=== PATIENT | female | born 1990 | race Caucasian/White ===

== ENCOUNTER 2018-06-12 16:22 | Emergency (ER) | payer MEDICAID ==
[2018-06-12] MEDS ORDERED: IBUPROFEN PO ONE (16:39)
--- NOTE | 2018-06-12 16:39 | Emergency Department Report ---
Chief Complaint: Upper Respiratory Infection Stated Complaint: FLU LIKE SYM Time Seen by Provider: 06/12/18 16:38 - HPI History of Present Illness: COLD COUGH CONGESTION FEVER MSE COMPLETED NO LIFE THREAT - Exam Vital Signs: Vital Signs 06/12/18 16:35 Temperature 99.1 F Pulse Rate 132 H Respiratory 16 Rate Blood Pressure 138/65 [Left] O2 Sat by Pulse 96 Oximetry MSE screening note: Focused history and physical exam performed. Due to findings the following was ordered: ED Disposition for MSE Condition: Stable
[2018-06-12] MEDS ORDERED: ZOFRAN ODT PO ONE (19:26)
--- NOTE | 2018-06-12 19:26 | Emergency Department Report ---
HPI - General Chief Complaint: Upper Respiratory Infection Time Seen by Provider: 06/12/18 16:38 - HPI HPI: This is a 27-year-old female here reports that her has the flu and he was given Tamiflu at a clinic. She says she has cough fever vomiting blood that started today. Denies any chest pain or shortness breath. Pain to throat is 6 out of 10 and achy only with swallowing. 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 Denies any abdominal pain and reports body ache also at 6/10 and achy. Denies any back pain, urinary burning frequency or urgency. Denies any headache or neck pain or stiffness. ED Past Medical Hx - Past Medical History Previous Medical History?: No - Surgical History Past Surgical History?: No - Family History Family history: no significant - Social History Smoking Status: Never Smoker Substance Use Type: None - Medications Home Medications: Home Medications Medication Instructions Recorded Confirmed Last Taken Type Ibuprofen [Motrin] 800 mg PO Q6HR PRN #16 tablet 06/12/18 Unknown Rx Ondansetron [Zofran ODT TAB] 8 mg PO Q8HR PRN #16 tab.rapdis 06/12/18 Unknown Rx Oseltamivir [Tamiflu] 75 mg PO BID 5 Days #10 cap 06/12/18 Unknown Rx guaiFENesin/CODEINE [Robitussin AC] 10 ml PO Q8H PRN #150 oral.liqd 06/12/18 Unknown Rx ED Review of Systems ROS: Stated complaint: FLU LIKE SYM Other details as noted in HPI Constitutional: chills, fever, malaise Eyes: denies: eye discharge ENT: throat pain, congestion. denies: ear pain Respiratory: cough, other (report that when she coughs she sees some blood in her phlegm). denies: shortness of breath, SOB with exertion, SOB at rest, stridor, wheezing Cardiovascular: denies: chest pain, palpitations, edema, syncope Gastrointestinal: nausea. denies: abdominal pain, vomiting, diarrhea, constipation Genitourinary: denies: urgency, dysuria, frequency, hematuria Musculoskeletal: myalgia. denies: back pain, arthralgia Skin: denies: rash Neurological: denies: headache, numbness, paresthesias, confusion, abnormal gait, vertigo Physical Exam - Physical Exam Vital Signs: Vital Signs 06/12/18 06/12/18 16:35 18:24 Temperature 99.1 F Pulse Rate 132 H Respiratory 16 18 Rate Blood Pressure 138/65 [Left] O2 Sat by Pulse 96 Oximetry Vital Signs 06/12/18 06/12/18 06/12/18 16:35 18:24 19:24 Temperature 99.1 F Pulse Rate 132 H Respiratory 16 18 18 Rate Blood Pressure 138/65 [Left] O2 Sat by Pulse 96 Oximetry 06/12/18 20:20 Temperature 98.3 F Pulse Rate 97 H Respiratory 20 Rate Blood Pressure 141/56 [Left] O2 Sat by Pulse 100 Oximetry General: This is a 27-year-old female well-nourished well-developed in no acute distress. Physical Exam: Head: Normocephalic atraumatic Ears:BIateral TM congested without erythema and loss of bony landmarks. Martin EAC with normal exam. No mastoid bone tenderness. Mouth: Moist, no pharyngeal erythema or exudate . UVULA midline and oral airways patent. No peritonsillar abscess Neck: Nontender to palpate, supple, normal range of motion. No adenopathy. No c- spine tenderness. Nose: Bilateral nasal mucosa congested/erythema with clear drainage. Maxillary and frontal sinuses non-tender to palpate. Eyes: Bilateral Sclerae and conjunctiva without injection. Bilateral pupils equal and reactive to light. Bilateral lids are normal. Normal accommodation.BEOMI Lungs: Clear to auscultate bilaterally, no rhonchi wheezes or rales. Normal work of breathing and no chest wall tenderness. Dry cough CV: S1, S2. Tachycardic with regular rhythm negative murmur. Capillary refill is less than 3 seconds Abdomen: Nontender to palpation in all quadrants: No guarding or rebound tendern ess. Positive bowel sounds in all quadrants Extremity: No clubbing, cyanosis or edema. +2 pulses in all extremities and no neurovascular compromise Skin: Clean dry and intact, no rashes or lesions Psych: Normal mood and behavior ED Course Vital Signs 06/12/18 06/12/18 16:35 18:24 Temperature 99.1 F Pulse Rate 132 H Respiratory 16 18 Rate Blood Pressure 138/65 [Left] O2 Sat by Pulse 96 Oximetry Vital Signs 06/12/18 06/12/18 06/12/18 16:35 18:24 19:24 Temperature 99.1 F Pulse Rate 132 H Respiratory 16 18 18 Rate Blood Pressure 138/65 [Left] O2 Sat by Pulse 96 Oximetry 06/12/18 20:20 Temperature 98.3 F Pulse Rate 97 H Respiratory 20 Rate Blood Pressure 141/56 [Left] O2 Sat by Pulse 100 Oximetry - Reevaluation(s) Reevaluation #1: 06/12/18 21:49 Patient given ibuprofen 800 mg, lidocaine 15 mL, Maalox 30 mL and Zofran formally [facility] and she says she feels a lot better. She is able to tolerate oral liquids and her vital signs are better. ED Medical Decision Making - Lab Data Lab Results 06/12/18 Range/Units 16:49 Influenza A (Rapid) Negative (Negative) Influenza B (Rapid) Negative (Negative) - Radiology Data Radiology results: report reviewed Findings [facility] [address] [place] [address] XRay Report Signed Patient: JONATHAN SEHARER MR#: [id number] : 1990 Acct:[id number] Age/Sex: 27 / F ADM Date: 06/12/18 Loc: ED Attending Dr: Ordering Physician: HECTOR GA Date of Service: 06/12/18 Procedure(s): XR chest routine 2V Accession Number(s): [id number] cc: HECTOR GA Fluoro Time In Minutes: FINAL REPORT EXAM: XR CHEST ROUTINE 2V HISTORY: cough, fever 1 TECHNIQUE: 2 views of the chest. PRIORS: None. FINDINGS: The cardiomediastinal silhouette appears normal. The lungs are clear. The bones and soft tissues are unremarkable. IMPRESSION: No evidence of acute cardiopulmonary disease Transcribed By: YUE Dictated By: JOSE JAMESON MD Electronically Authenticated By: JOSE JAMESON MD Signed Date/Time: 06/12/182058 DD/ 58 TD/TT: 06/12/182058 I know I know I know Laura I think he some boyfriend were - Medical Decision Making This is a 27-year-old female he reports that her has the flu and that she started having flulike symptoms this morning. Influenza A and B is negative. Chest x-ray negative findings per radiology report. I discussed results of x-ray and flu test the patient. I gave her a diagnosis and treatment plan. She was discharged home in stable condition with prescription for guaifenesin with codeine, Zofran, Tamiflu and Motrin. Vital signs are stable she is afebrile and she is nontoxic in appearance. - Differential Diagnosis viral versus bacterial infection Critical care attestation.: If time is entered above; I have spent that time in minutes in the direct care of this critically ill patient, excluding procedure time. ED Disposition Clinical Impression: Exposure to influenza, Upper respiratory infection with cough and congestion, Fever in adult Disposition: DC-01 TO HOME OR SELFCARE Is pt being admited?: No Does the pt Need Aspirin: No Condition: Stable Instructions: Acute Nausea and Vomiting (ED), Viral Syndrome (ED), Fever in Adults (ED), Acute Cough (ED) Additional Instructions: Please follow up with the primary care physician in 2-3 days and if he condition worsens he can return to the emergency room. Take Tamiflu as prescribed Take Motrin every 6 hours 2 days and then as needed. Please ensure that use drink at least 3 L of water daily to prevent dehydration and keep temperature down Take codeine with guaifenesin cough medicine every 8 hours as needed but please do not drive or operate heavy machinery while taking this medication. You have a virus and you will need to rest for at least 5 days to help Immune system to recuperate Referrals: ITZEL MUHAMMAD MD [Primary Care Provider] - 2-3 Days Forms: Work/School Release Form(ED)
[2018-06-12] MEDS ORDERED: ALUM-MAG HYDROX-SIMETH 200-200-20MG/5ML PO ONE (19:27)
[2018-06-12] MEDS ORDERED: LIDOCAINE VISCOUS 2% PO ONE (19:27)
[2018-06-12 20:21] VITALS: BP 141/56
--- NOTE | 2018-06-12 20:59 | XRay Report ---
FINAL REPORT EXAM: XR CHEST ROUTINE 2V HISTORY: cough, fever 1 TECHNIQUE: 2 views of the chest. PRIORS: None. FINDINGS: The cardiomediastinal silhouette appears normal. The lungs are clear. The bones and soft tissues are unremarkable. IMPRESSION: No evidence of acute cardiopulmonary disease
== END 2018-06-12 22:42 | disposition home or self-care (01) ==
LOC: ED 16:22
DX: J06.9 Acute upper respiratory infection, unspecified (principal); Z20.828 Contact with and (suspected) exposure to other viral communicable diseases
CPT/HCPCS: 71046; 87400; Q0162

== ENCOUNTER 2020-01-06 19:56 | Emergency (ER) | payer MEDICAID ==
[2020-01-06 21:19] LABS: Basophils % (Auto) 0.7 % (0.0-1.8); Eosinophils # (Auto) 0.2 K/mm3 (0.0-0.4); Eosinophils % (Auto) 2.7 % (0.0-4.3); Hematocrit 37.9 % (30.3-42.9); Hemoglobin 12.5 gm/dl (10.1-14.3); Lymphocytes # (Auto) 2.2 K/mm3 (1.2-5.4); Mean Corpuscular HGB Conc 33 % (30-34); Mean Corpuscular Volume 85 fl (79-97); Monocytes # (Auto) 0.4 K/mm3 (0.0-0.8); Monocytes % (Auto) 6.1 % (0.0-7.3); Platelet Count 336 K/mm3 (140-440); Red Blood Count 4.46 M/mm3 (3.65-5.03); Red Cell Distribution Width 13.1 % (13.2-15.2)
[2020-01-06 21:39] LABS: Alanine Aminotransferase 12 units/L (7-56); Albumin 4.3 g/dL (3.9-5); Blood Urea Nitrogen 6 mg/dL (7-17); Calcium 9.5 mg/dL (8.4-10.2); Hemolysis Index 4
[2020-01-06 21:46] LABS: BUN/Creatinine Ratio 9
[2020-01-06 22:04] LABS: Bilirubin,Urine NEG (Negative); Blood,Urine SM (Negative); Color,Urine Straw (Yellow); Protein,Urine <15 mg/dL mg/dL (Negative); Urobilinogen,Urine < 2.0 mg/dL (<2.0)
[2020-01-07 00:40] VITALS: BP 145/78
--- NOTE | 2020-01-07 01:13 | Cat Scan Report ---
CT ABDOMEN AND PELVIS WITH CONTRAST INDICATION: Lower ABD Pain. TECHNIQUE: Axial CT images were obtained through the abdomen and pelvis after 100 cc Omni [address] scans at this location are performed using CT dose reduction for ALARA by means of automated expos ure control. COMPARISON: None available. FINDINGS: LOWER CHEST: No significant abnormality. LIVER: No significant abnormality. Tiny subcentimeter hypodense lesion posterior hepatic segment imag e 39 is too small to adequately characterize but statistically most likely represents cyst or hemangi leo GALLBLADDER: No significant abnormality. BILE DUCTS: No significant abnormality. PANCREAS: No significant abnormality. SPLEEN: No significant abnormality. ADRENALS: No significant abnormality. RIGHT KIDNEY and URETER: No significant abnormality. LEFT KIDNEY and URETER: No significant abnormality. STOMACH and SMALL BOWEL: No significant abnormality. COLON: No significant abnormality. APPENDIX: Normal. PERITONEUM: Trace amount of free pelvic fluid. No free air. No fluid collection. LYMPH NODES: No significant adenopathy. AORTA and ARTERIES: No significant abnormality. IVC and VEINS: No significant abnormality. URINARY BLADDER: No significant abnormality. REPRODUCTIVE ORGANS: No significant abnormality. ADDITIONAL FINDINGS: None. SKELETAL SYSTEM: No significant abnormality. IMPRESSION: 1. Trace free pelvic fluid likely physiologic. 2. No significant abnormality Signer Name: Jhonny Mckenzie MD Signed: 01/07/2020 1:08 AM Workstation Name: [email or web address]
[2020-01-07] MEDS ORDERED: METOCLOPRAMIDE 10 MG/2 ML INJ IV ONE (02:32)
[2020-01-07] MEDS ORDERED: KETOROLAC 30 MG/1 ML INJ IV ONE (02:32)
[2020-01-07] MEDS ORDERED: diphenhydrAMINE 50 MG/ML VIAL IV ONE (02:32)
[2020-01-07] MEDS ORDERED: KETOROLAC 30 MG/1 ML INJ ONE (02:35)
[2020-01-07] MEDS ORDERED: diphenhydrAMINE 50 MG/ML VIAL ONE (02:35)
--- NOTE | 2020-01-07 03:56 | Emergency Department Report ---
ED Abdominal Pain HPI - General Chief Complaint: Abdominal Pain Stated Complaint: DIARRHEA VAGINAL PAIN ABD PAIN Time Seen by Provider: 01/06/20 22:56 Source: patient Mode of arrival: Ambulatory Limitations: No Limitations - History of Present Illness MD Complaint: abdominal pain Severity scale (0 -10): 3 - Related Data Previous Rx's Medication Instructions Recorded Last Taken Type Ibuprofen [Motrin] 800 mg PO Q6HR PRN #16 tablet 06/12/18 Unknown Rx Ondansetron [Zofran ODT TAB] 8 mg PO Q8HR PRN #16 tab.rapdis 06/12/18 Unknown Rx Oseltamivir [Tamiflu] 75 mg PO BID 5 Days #10 cap 06/12/18 Unknown Rx guaiFENesin/CODEINE [Robitussin AC] 10 ml PO Q8H PRN #150 oral.liqd 06/12/18 Unknown Rx Hyoscyamine Subl [Levsin Sl 0.125 0.125 mg SL Q4HR PRN #20 tablet 01/07/20 Unknown Rx TAB] Ketorolac [Toradol] 10 mg PO BID PRN #10 tablet 01/07/20 Unknown Rx Ondansetron [Zofran Odt] 4 mg PO Q8HR #14 tab.rapdis 01/07/20 Unknown Rx Allergies Allergy/AdvReac Type Severity Reaction Status Date / Time No Known Allergies Allergy Verified 06/12/18 16:34 ED Review of Systems ROS: Stated complaint: DIARRHEA VAGINAL PAIN ABD PAIN Other details as noted in HPI Comment: All other systems reviewed and negative ED Past Medical Hx - Past Medical History Previous Medical History?: Yes Hx Diabetes: Yes Hx Asthma: Yes - Surgical History Past Surgical History?: No - Social History Smoking Status: Never Smoker Substance Use Type: None - Medications Home Medications: Home Medications Medication Instructions Recorded Confirmed Last Taken Type Ibuprofen [Motrin] 800 mg PO Q6HR PRN #16 tablet 06/12/18 Unknown Rx Ondansetron [Zofran ODT TAB] 8 mg PO Q8HR PRN #16 tab.rapdis 06/12/18 Unknown Rx Oseltamivir [Tamiflu] 75 mg PO BID 5 Days #10 cap 06/12/18 Unknown Rx guaiFENesin/CODEINE [Robitussin AC] 10 ml PO Q8H PRN #150 oral.liqd 02/23/19 Unknown Rx Hyoscyamine Subl [Levsin Sl 0.125 0.125 mg SL Q4HR PRN #20 tablet 01/07/20 Unknown Rx TAB] Ketorolac [Toradol] 10 mg PO BID PRN #10 tablet 01/07/20 Unknown Rx Ondansetron [Zofran Odt] 4 mg PO Q8HR #14 tab.rapdis 01/07/20 Unknown Rx ED Physical Exam - General Limitations: No Limitations General appearance: alert, in no apparent distress - Head Head exam: Present: atraumatic, normocephalic - Eye Eye exam: Present: normal appearance, PERRL Pupils: Present: normal accommodation - ENT ENT exam: Present: normal exam, mucous membranes moist - Neck Neck exam: Present: normal inspection, full ROM - Respiratory Respiratory exam: Present: normal lung sounds bilaterally. Absent: respiratory distress, rales, chest wall tenderness, accessory muscle use - Cardiovascular Cardiovascular Exam: Present: regular rate, normal rhythm. Absent: systolic murmur, diastolic murmur, rubs, gallop - GI/Abdominal GI/Abdominal exam: Present: soft, tenderness (Left upper quadrant left lower quadrant suprapubic region), normal bowel sounds - Extremities Exam Extremities exam: Present: normal inspection - Back Exam Back exam: Present: normal inspection. Absent: CVA tenderness (R), CVA tenderness (L) - Neurological Exam Neurological exam: Present: alert, oriented X3, CN II-XII intact, normal gait - Psychiatric Psychiatric exam: Present: normal affect, normal mood - Skin Skin exam: Present: warm, dry, intact, normal color. Absent: rash ED Course Vital Signs 01/06/20 01/07/20 20:27 00:15 Temperature 98.3 F 99.7 F H Pulse Rate 89 86 Respiratory 16 15 Rate Blood Pressure 125/76 Blood Pressure 145/78 [Right] O2 Sat by Pulse 99 98 Oximetry ED Medical Decision Making - Lab Data Result diagrams: 01/06/20 21:00 01/06/20 21:00 Lab Results 01/06/20 01/06/20 01/06/20 Range/Units 21:00 21:00 21:00 WBC 6.2 (4.5-11.0) K/mm3 RBC 4.46 (3.65-5.03) M/mm3 Hgb 12.5 (10.1-14.3) gm/dl Hct 37.9 (30.3-42.9) % MCV 85 (79-97) fl MCH 28 (28-32) pg MCHC 33 (30-34) % RDW 13.1 L (13.2-15.2) % Plt Count 336 (140-440) K/mm3 Lymph % (Auto) 36.0 H (13.4-35.0) % [place] % (Auto) 6.1 (0.0-7.3) % Eos % (Auto) 2.7 (0.0-4.3) % Baso % (Auto) 0.7 (0.0-1.8) % Lymph # 2.2 (1.2-5.4) K/mm3 [place] # 0.4 (0.0-0.8) K/mm3 Eos # 0.2 (0.0-0.4) K/mm3 Baso # 0.0 (0.0-0.1) K/mm3 Seg Neutrophils % 54.5 (40.0-70.0) % Seg Neutrophils # 3.4 (1.8-7.7) K/mm3 Sodium 139 (137-145) mmol/L Potassium 3.7 (3.6-5.0) mmol/L Chloride 102.4 (98-107) mmol/L Carbon Dioxide 25 (22-30) mmol/L Anion Gap 15 mmol/L BUN 6 L (7-17) mg/dL Creatinine 0.7 (0.6-1.2) mg/dL Estimated GFR > 60 ml/min BUN/Creatinine Ratio 9 % Glucose 109 H (65-100) mg/dL Calcium 9.5 (8.4-10.2) mg/dL Total Bilirubin 0.40 (0.1-1.2) mg/dL AST 18 (5-40) units/L ALT 12 (7-56) units/L Alkaline Phosphatase 64 (35-129) units/L Total Protein 7.1 (6.3-8.2) g/dL Albumin 4.3 (3.9-5) g/dL Albumin/Globulin Ratio 1.5 % Lipase 48 (13-60) units/L HCG, Qual Negative (Negative) Urine Color (Yellow) Urine Turbidity (Clear) Urine pH (5.0-7.0) Ur Specific [place] (1.003-1.030) Urine Protein (Negative) mg/dL Urine Glucose (UA) (Negative) mg/dL Urine Ketones (Negative) mg/dL Urine Blood (Negative) Urine Nitrite (Negative) Urine Bilirubin (Negative) Urine Urobilinogen (<2.0) mg/dL Ur Leukocyte Esterase (Negative) Urine WBC (Auto) (0.0-6.0) /HPF Urine RBC (Auto) (0.0-6.0) /HPF U Epithel Cells (Auto) (0-13.0) /HPF 01/06/20 Range/Units 21:37 WBC (4.5-11.0) K/mm3 RBC (3.65-5.03) M/mm3 Hgb (10.1-14.3) gm/dl Hct (30.3-42.9) % MCV (79-97) fl MCH (28-32) pg MCHC (30-34) % RDW (13.2-15.2) % Plt Count (140-440) K/mm3 Lymph % (Auto) (13.4-35.0) % [place] % (Auto) (0.0-7.3) % Eos % (Auto) (0.0-4.3) % Baso % (Auto) (0.0-1.8) % Lymph # (1.2-5.4) K/mm3 [place] # (0.0-0.8) K/mm3 Eos # (0.0-0.4) K/mm3 Baso # (0.0-0.1) K/mm3 Seg Neutrophils % (40.0-70.0) % Seg Neutrophils # (1.8-7.7) K/mm3 Sodium (137-145) mmol/L Potassium (3.6-5.0) mmol/L Chloride (98-107) mmol/L Carbon Dioxide (22-30) mmol/L Anion Gap mmol/L BUN (7-17) mg/dL Creatinine (0.6-1.2) mg/dL Estimated GFR ml/min BUN/Creatinine Ratio % Glucose (65-100) mg/dL Calcium (8.4-10.2) mg/dL Total Bilirubin (0.1-1.2) mg/dL AST (5-40) units/L ALT (7-56) units/L Alkaline Phosphatase (35-129) units/L Total Protein (6.3-8.2) g/dL Albumin (3.9-5) g/dL Albumin/Globulin Ratio % Lipase (13-60) units/L HCG, Qual (Negative) Urine Color Straw (Yellow) Urine Turbidity Clear (Clear) Urine pH 7.0 (5.0-7.0) Ur Specific [place] 1.003 (1.003-1.030) Urine Protein <15 mg/dl (Negative) mg/dL Urine Glucose (UA) Neg (Negative) mg/dL Urine Ketones Neg (Negative) mg/dL Urine Blood Sm (Negative) Urine Nitrite Neg (Negative) Urine Bilirubin Neg (Negative) Urine Urobilinogen < 2.0 (<2.0) mg/dL Ur Leukocyte Esterase Neg (Negative) Urine WBC (Auto) 1.0 (0.0-6.0) /HPF Urine RBC (Auto) 2.0 (0.0-6.0) /HPF U Epithel Cells (Auto) 2.0 (0-13.0) /HPF - Radiology Data Radiology results: report reviewed [facility] [address] [id number] Cat Scan Report Signed Patient: JONATHAN SHEARER MR#: [id number] : 1990 Acct:[id number] Age/Sex: 29 / F ADM Date: 01/06/20 Loc: ED Attending Dr: Ordering Physician: HECTOR BANERJEE Date of Service: 01/06/20 Procedure(s): CT abdomen pelvis w con Accession Number(s): [id number] cc: HECTOR BANERJEE CT ABDOMEN AND PELVIS WITH CONTRAST INDICATION: Lower ABD Pain. TECHNIQUE: Axial CT images were obtained through the abdomen and pelvis after 100 cc Omni [address] scans at this location are performed using CT dose reduction for ALARA by means of automated exposure control. COMPARISON: None available. FINDINGS: LOWER CHEST: No significant abnormality. LIVER: No significant abnormality. Tiny subcentimeter hypodense lesion posterior hepatic segment image 39 is too small to adequately characterize but statistically most likely represents cyst or he mangioma GALLBLADDER: No significant abnormality. BILE DUCTS: No significant abnormality. PANCREAS: No significant abnormality. SPLEEN: No significant abnormality. ADRENALS: No significant abnormality. RIGHT KIDNEY and URETER: No significant abnormality. LEFT KIDNEY and URETER: No significant abnormality. STOMACH and SMALL BOWEL: No significant abnormality. COLON: No significant abnormality. APPENDIX: Normal. PERITONEUM: Trace amount of free pelvic fluid. No free air. No fluid collection. LYMPH NODES: No significant adenopathy. AORTA and ARTERIES: No significant abnormality. IVC and VEINS: No significant abnormality. URINARY BLADDER: No significant abnormality. REPRODUCTIVE ORGANS: No significant abnormality. ADDITIONAL FINDINGS: None. SKELETAL SYSTEM: No significant abnormality. IMPRESSION: 1. Trace free pelvic fluid likely physiologic. 2. No significant abnormality Signer Name: Jhonny Mckenzie MD Signed: 01/07/2020 1:08 AM Workstation Name: [id number] Transcribed By: TL Dictated By: Jhonny Mckenzie MD Electronically Authenticated By: Jhonny Mckenzie MD Signed Date/Time: 01/07/20107 DD/ 4 TD/TT: - Medical Decision Making This patient presents with abdominal pain of unclear etiology. A CT scan was performed to evaluate for potential causes of the abdominal pain, however, neither the clinical exam nor the CT has identified an emergent etiology for the abdominal pain. Specifically, given the benign exam, the laboratory studies, and unremarkable CT, I have a very low suspicion for appendicitis, ischemic bowel, bowel perforation, or any other life threatening disease. I have discussed with the patient the level of uncertainty with undifferentiated abdominal pain and clearly explained the need to follow-up as noted on the discharge instructions, or return to the Emergency Department immediately if the pain worsens, develops fever, persistent and uncontrollable vomiting, or for any new symptoms or concerns. Critical care attestation.: If time is entered above; I have spent that time in minutes in the direct care of this critically ill patient, excluding procedure time. ED Disposition Clinical Impression: Abdominal pain Disposition: DC-01 TO HOME OR SELFCARE Is pt being admited?: No Does the pt Need Aspirin: No Condition: Stable Instructions: Abdominal Pain (ED) Prescriptions: Hyoscyamine Subl [Levsin Sl 0.125 TAB] 0.125 mg SL Q4HR PRN #20 tablet PRN Reason: Spasms Ketorolac [Toradol] 10 mg PO BID PRN #10 tablet PRN Reason: Pain Ondansetron [Zofran Odt] 4 mg PO Q8HR #14 tab.rapdis Referrals: ITZEL MUHAMMAD MD [Primary Care Provider] - 3-5 Days
== END 2020-01-07 04:33 | disposition home or self-care (01) ==
LOC: ED 19:56
DX: R10.12 Left upper quadrant pain (principal); R10.32 Left lower quadrant pain
CPT/HCPCS: 36415; 74177; 80053; 81001; 83690; 84703; 85025; 96374; 96375; 99284; J1200; J1885; J2765; Q9967